=== PATIENT | female | born 1960 | race Caucasian/White ===

== ENCOUNTER → 2016-11-01 | Outpatient (CLI) | payer BC ==
--- NOTE | 2016-11-01 16:54 | KCIC ---
MR of the right knee Indication: Right knee pain and swelling after multiple falls. Comparison: April 12, 2016. Technique: The standard multiplanar sequences are obtained. Findings: Medial meniscus:Intact. Lateral meniscus: Intact. Anterior cruciate ligament: Intact Posterior cruciate ligament: Intact Medial collateral ligament: Intact. Iliotibial band: Intact. Posterolateral structures: Fibular collateral ligament, biceps tendon and popliteus tendon are intact. Extensor mechanism: Intact. Fluid: Small joint effusion. Articular cartilage -patellofemoral joint: Chondromalacia, severe at the upper pole of the patella with subchondral cysts. -medial compartment: Moderate to severe chondromalacia. This appears slightly worse at the medial femoral condyle, and there has been development of minimal subchondral bone marrow edema. -lateral compartment: Moderate chondromalacia. Bones: Tiny lesion at the posterior distal femur just above the intracondylar notch, likely a tiny enchondroma measuring 5 mm. No aggressive bone destruction or acute fracture. Soft tissue: Unremarkable Impression: 1. Primary osteoarthritis. 2. No evidence of meniscal tear or other internal derangement. Electronically signed by: Moises Contreras MD (11/01/2016 4:51 PM) [id number]
== END | disposition home or self-care (01) ==
LOC: KCIC MRI 15:42
PROVIDERS: ATTEND Family Medicine
DX: M17.11 Unilateral primary osteoarthritis, right knee (principal); M25.461 Effusion, right knee; Z91.81 History of falling
CPT/HCPCS: 73721

== ENCOUNTER → 2020-12-01 | Outpatient (CLI) | payer BC ==
--- NOTE | 2020-12-01 08:19 | RAD ---
EXAM: Abdomen sonogram. HISTORY: Right upper quadrant pain. TECHNIQUE: Sonographic imaging of the abdomen was performed. COMPARISON: None. FINDINGS: The liver is enlarged. There is hepatic steatosis. No focal hepatic lesion is seen. There i s cholelithiasis. There is no sonographic evidence of cholecystitis. The common bile duct is normal i n caliber. The right kidney is normal in size. There is no hydronephrosis. No solid or cystic renal l esion is seen. The pancreas and inferior vena cava are unremarkable. The aorta is not formally assess ed. IMPRESSION: 1. Hepatomegaly and hepatic steatosis. 2. Cholelithiasis. 3. No acute sonographic finding. Electronically signed by: Emily Alejo MD (12/01/2020 8:17 AM) [facility]
== END ==
LOC: US 06:53
PROVIDERS: ATTEND Nurse Practitioner Family
DX: R16.0 Hepatomegaly, not elsewhere classified (principal); K76.0 Fatty (change of) liver, not elsewhere classified; K80.20 Calculus of gallbladder without cholecystitis without obstruction
CPT/HCPCS: 76705